=== PATIENT | male | born 1990 | race Caucasian/White ===

== ENCOUNTER 2019-07-13 13:28 | Emergency (ER) | payer SELFPAY ==
[~2019-07-13] VITALS: Ht 172.7 cm; Wt 102.0 kg
[2019-07-13 13:50] VITALS: BP 133/87
--- NOTE | 2019-07-13 14:14 | PHYS DOC ---
Past Medical History Past Medical History: No Pertinent History Past Surgical History: No Surgical History Additional Information: Never smoker Alcohol Use: None Adult General Chief Complaint Chief Complaint: HEMORRHOIDS HPI HPI A 28-year-old female presents with a flareup of hemorrhoids. He's been struggling with this since 20 years old. Yesterday he had a bowel movement and strained a little too hard and afterwards noticed a sharp pain rectum. He pain as 9 out of 10. He reports this flare being the worse he's had since the first time he developed hemorrhoids. He denies any blood in his stool yesterday. He also denies abdominal pain, fever, and dysuria. Review of Systems Review of Systems Constitutional: Denies fever or chills Eyes: Denies redness or eye pain HENT: Denies nasal congestion or sore throat Respiratory: Denies cough or shortness of breath Cardiovascular: Denies chest pain or palpitations GI: Denies abdominal pain, nausea, or vomiting. Reports rectal pain since yesterday's bowel movement. Sharp in nature : Denies dysuria or hematuria Musculoskeletal: Denies back pain or joint pain Integument: Denies rash or skin lesions Neurologic: Denies headache, focal weakness or sensory changes Complete systems were reviewed and found to be within normal limits, except as documented in this note. Current Medications Current Medications Current Medications Medications (Trade) Dose Ordered Sig/Adwoa Start Time Stop Time Status Last Admin Dose Admin Acetaminophen/ Hydrocodone Bitart (Lortab 5/325) 1 tab 1X ONCE 07/13/19 14:45 07/13/19 14:46 UNV 07/13/19 14:48 1 TAB Physical Exam Physical Exam Constitutional: Well developed, well nourished, no acute distress, non-toxic appearance HENT: Normocephalic, atraumatic, oropharynx moist Eyes: PERRL, EOMI, conjunctiva normal, no discharge Neck: Normal range of motion, no tenderness, supple Cardiovascular: Heart rate normal, regular rhythm Lungs & Thorax: Bilateral breath sounds clear to auscultation, no wheezing Abdomen: Soft, no tenderness Skin: Warm, dry, no erythema, no rash Back: No tenderness, no CVA tenderness Extremities: No tenderness, ROM intact, no edema Neurologic: Alert and oriented X 3, normal motor function, normal sensory function, no focal deficits noted Psychologic: Affect normal, judgement normal, mood normal Rectal: Current Patient Data Vital Signs Vital Signs Date Time Temp Pulse Resp B/P (MAP) Pulse Ox O2 Delivery O2 Flow Rate FiO2 07/13/19 14:48 14 98 Room Air 07/13/19 13:50 98.6 105 133/87 (102) 98.6 EKG EKG [] Radiology/Procedures Radiology/Procedures [] Course & Med Decision Making Course & Med Decision Making Pertinent Labs and Imaging studies reviewed. (See chart for details) Patient presents with a hemorrhoid exacerbation that started yesterday after a big bowel movement. After physical exam patient has a large circumferential external hemorrhoid without thrombosis. Patient was prescribed analgesics, stool softener, steroids, and instructed to take a sitz bath. Patient was also given the name and number of a general surgeon to follow-up with. Patient stable for discharge with outpatient follow-up with PCP. Discussed findings and plan with patient and family, who acknowledge understanding and agreement.[email or web address] Armendariz Disclaimer Dragon Disclaimer This electronic medical record was generated, in whole or in part, using a voice recognition dictation system. Departure Departure Impression: Primary Impression: External hemorrhoid Disposition: 01 HOME, SELF-CARE Condition: STABLE Referrals: NO PCP (PCP) RACHEL FRANKS MD Patient Instructions: Hemorrhoids, [id number] Additional Instructions: Use epsom salt bath (2 time daily) Scripts Hydrocortisone Acetate (ANUSOL-HC) 25 Mg Supp.rect 1 SUPP RC BID for 7 Days, #14 SUPP 0 Refills Prov: VASILIY MORRISSEY DO 07/13/19 Hydrocodone/Apap 5-325 (NORCO 5-325 TABLET) 1 Each Tablet 0.5-1 TAB PO PRN Q6HRS PRN for PAIN, #10 TAB 0 Refills Prov: VASILIY MORRISSEY DO 07/13/19 Sennosides/Docusate Sodium (Colace 2-in-1 Tablet) 1 Each Tablet 2 TAB PO QHS for 30 Days, #60 TAB 0 Refills Prov: VASILIY MORRISSEY DO 07/13/19 VASILIY MORRISSEY DO Jul 13, 2019 14:14
[2019-07-13] MEDS ORDERED: HYDROcodone/APAP 5/325MG 1 TAB TABLET ONE (14:43)
[2019-07-13] MEDS ORDERED: HYDROcodone/APAP 5/325MG 1 TAB TABLET PO ONE (14:45)
[2019-07-13] MEDS ORDERED: HYDR-3164 PO (14:45)
[2019-07-13] MEDS ORDERED: HYDR25SU18 RC (14:45)
[2019-07-13] MEDS ORDERED: SENN-121 PO (14:45)
== END 2019-07-13 14:50 | disposition home or self-care (01) ==
LOC: ER 13:28
DX: K64.4 Residual hemorrhoidal skin tags (principal); K62.89 Other specified diseases of anus and rectum
CPT/HCPCS: 99283

== ENCOUNTER 2020-07-12 13:28 | Emergency (ER) | payer OTHER ==
[~2020-07-12] VITALS: Ht 170.2 cm; Wt 106.8 kg
[~2020-07-12 13:28] MED LIST: HYDR-3164 PO; HYDR25SU18 RC; SENN-121 PO
[2020-07-12 14:09] LABS: BILIRUBIN,URINE NEGATIVE (NEG); CLARITY,URINE CLEAR; COLOR,URINE YELLOW; NITRITE,URINE NEGATIVE (NEG); PH,URINE 6.5 (<5.0-8.0); PROTEIN,URINE NEGATIVE (NEG-TRACE)
[2020-07-12 14:33] LABS: BACTERIA,URINE 0 /HPF (0-FEW); WBC,URINE 0 /HPF (0-4)
--- NOTE | 2020-07-12 14:40 | PHYS DOC ---
Past Medical History Past Medical History: No Pertinent History Past Surgical History: No Surgical History Smoking Status: Never Smoker Alcohol Use: None Adult General Chief Complaint Chief Complaint: SEXUALLY TRANSMITTED DISEASE HPI HPI Patient is a 29 year old male with no past medical history who presents with sexually-transmitted disease concern. Patient significant other was notified that she had bacterial vaginosis and trichomonas. Patient is here for treatment. Patient denies any symptoms at this time. Denies dysuria hematuria abdominal pain nausea vomiting diarrhea constipation fever chills testicular pain. Patient has never had a sexually transmitted disease in the past. Patient denies drugs alcohol or tobacco. Review of Systems Review of Systems Constitutional: Denies fever or chills [] Eyes: Denies change in visual acuity, redness, or eye pain [] HENT: Denies nasal congestion or sore throat [] Respiratory: Denies cough or shortness of breath [] Cardiovascular: No additional information not addressed in HPI [] GI: Denies abdominal pain, nausea, vomiting, bloody stools or diarrhea [] : Denies dysuria or hematuria [] Musculoskeletal: Denies back pain or joint pain [] Integument: Denies rash or skin lesions [] Neurologic: Denies headache, focal weakness or sensory changes [] Endocrine: Denies polyuria or polydipsia [] All other systems were reviewed and found to be within normal limits, except as documented in this note. Current Medications Current Medications Current Medications Medications (Trade) Dose Ordered Sig/Adwoa Start Time Stop Time Status Last Admin Dose Admin Azithromycin (Zithromax) 1,000 mg 1X ONCE 07/12/20 14:45 07/12/20 14:46 DC 07/12/20 14:51 1,000 MG Ceftriaxone Sodium (Rocephin Im) 500 mg 1X ONCE 07/12/20 14:45 07/12/20 14:46 DC 07/12/20 14:53 500 MG Metronidazole (Flagyl) 500 mg 1X ONCE 07/12/20 14:45 07/12/20 14:46 DC 07/12/20 14:55 500 MG Allergies Allergies Allergies Coded Allergies Type Severity Reaction Last Updated Verified No Known Drug Allergies 07/12/20 No Physical Exam Physical Exam Constitutional: Well developed, well nourished, no acute distress, non-toxic appearance. [] HENT: Normocephalic, atraumatic, bilateral external ears normal, oropharynx moist, nose normal. [] Eyes: EOMI, conjunctiva normal, no discharge. [] Neck: Normal range of motion, no tenderness, supple, no stridor. [] Cardiovascular:Heart rate regular rhythm, no murmur [] Lungs & Thorax: Bilateral breath sounds clear to auscultation [] Abdomen: soft, no tenderness, no masses, no pulsatile masses. [] Skin: Warm, dry, no erythema, no rash. [] Back: No tenderness, no CVA tenderness. [] Extremities: No obvious deformities. ROM intact, Neurologic: Alert and oriented X 3, no obvious neurologic deficits. Psychologic: Affect normal, judgement normal, mood normal. [] Current Patient Data Vital Signs Vital Signs Date Time Temp Pulse Resp B/P (MAP) Pulse Ox O2 Delivery O2 Flow Rate FiO2 07/12/20 13:30 97.9 98 18 138/81 (100) 99 Room Air 97.9 Lab Values Laboratory Tests Test 07/12/20 13:35 Urine Collection Type Unknown Urine Color Yellow Urine Clarity Clear Urine pH 6.5 (<5.0-8.0) Urine Specific [place] 1.025 (1.000-1.030) Urine Protein Negative mg/dL (NEG-TRACE) Urine Glucose (UA) Negative mg/dL (NEG) Urine Ketones (Stick) Negative mg/dL (NEG) Urine Blood Negative (NEG) Urine Nitrite Negative (NEG) Urine Bilirubin Negative (NEG) Urine Urobilinogen Dipstick 1.0 mg/dL (0.2 mg/dL) Urine Leukocyte Esterase Negative (NEG) Urine RBC 1-2 /HPF (0-2) Urine WBC 0 /HPF (0-4) Urine Bacteria 0 /HPF (0-FEW) Urine Mucus Marked /LPF EKG EKG [] Radiology/Procedures Radiology/Procedures [] Course & Med Decision Making Course & Med Decision Making Pertinent Labs and Imaging studies reviewed. (See chart for details) []MDM: 29-year-old male presents emergency department for STD concern. Patient is currently asymptomatic. Vital signs stable. Urinalysis unremarkable. Gonorrhea and chlamydia sent. Patient will be treated for trichomonas, gonorrhea and chlamydia. Patient will be sent home on Flagyl. Patient is instructed to sustain from sexual intercourse for 14 days. He is to follow-up with his family physician or the health department in 1 to 2 days. Patient is to notify any other sexual partners of his exposure. At this point patient is stable for discharge. Discussed strict emergency department return precautions and follow-up information. Patient expressed a verbal understanding of these concerns. Patient is aware of lab results. All questions answered and patient is stable time of discharge. Dragon Disclaimer Dragon Disclaimer This electronic medical record was generated, in whole or in part, using a voice recognition dictation system. Departure Departure Impression: Primary Impression: Sexually transmitted disease exposure Disposition: 01 DC HOME SELF CARE/HOMELESS Condition: STABLE Referrals: NO PCP (PCP) Follow up with PCP or health department Patient Instructions: Sexually Transmitted Disease, Sexually Transmitted Disease, [id number] Additional Instructions: [facility] [address] [place] [address] [facility] [address] [place] [address] [facility] [address] [facility] [place] [address] [facility] [address] [place] [address] [facility] [address] [place] [address] [address] [place] [address] [facility] [address] [place] [address] [facility] [address] [place] [address] [facility] [address] [place] [address] [facility] [address] [place] [address] Scripts Metronidazole (FLAGYL) 500 Mg Tablet 1 TAB PO BID for 7 Days, #14 TAB Prov: YUDY JEFFERSON DO 07/12/20 YUDY JEFFERSON DO Jul 12, 2020 14:40
[2020-07-12] MEDS ORDERED: METR500T PO (14:44)
[2020-07-12] MEDS ORDERED: AZITHROMYCIN 250 MG TABLET. PO ONE (14:45)
[2020-07-12] MEDS ORDERED: cefTRIAXone IM 250 MG VIAL IM ONE (14:45)
[2020-07-12] MEDS ORDERED: metroNIDAZOLE 500 MG TABLET PO ONE (14:45)
[2020-07-12 15:09] VITALS: BP 130/76
== END 2020-07-12 15:09 | disposition home or self-care (01) ==
LOC: ER 13:28
DX: A59.9 Trichomoniasis, unspecified (principal); Z20.2 Contact with and (suspected) exposure to infections with a predominantly sexual mode of transmission
CPT/HCPCS: 81001; 87491; 87591; 96372; 99283; J0696